=== PATIENT | male | born 1945 | race Caucasian/White ===

== ENCOUNTER 2017-01-29 06:34 | Emergency (ER) | payer BC ==
[2017-01-29 06:42] VITALS: RESP 16
[2017-01-29] MEDS ORDERED: NS 1,000 ML IV ONE ×2 (07:03→08:05)
[2017-01-29] MEDS ORDERED: ACETAMINOPHEN 325 MG TAB PO ONE (07:04)
--- NOTE | 2017-01-29 07:04 | EDPHY ---
H & P Time Seen by Provider: 01/29/17 06:49 HPI/ROS: CHIEF COMPLAINT: Fever and feels hot HISTORY OF PRESENT ILLNESS: This 71-year-old man says that it "started going downhill around lunchtime" yesterday. He had a dental procedure for a left upper tooth where he had a broken implant. He had a replacement screwed into his gum and was hurting yesterday afternoon associated with his head feeling "thick" and a little bit of a sensation of being hot. Overnight his tooth stopped hurting. He felt hot and dry and fever nayak was shaking with 3 blankets over him and felt very clammy. Symptoms were severe. Not associated with cough or urinary symptoms or sore throat or other ENT symptoms. No animals. He did return 2 weeks ago from [place] and was at a conference in a [place] [facility] for a week. Did not take malaria prophylaxis but no known insect exposures. REVIEW OF SYSTEMS: Eye: no change in vision ENT: no sore throat or earache, dental as above Cardiac: no chest pain or syncope Pulmonary: no cough or SOB Abdomen: no vomiting, diarrhea, abdominal pain Musculoskeletal: no back pain Skin: no rash Neuro: Patient denies a severe headache to me but feels like he has "hangover head" Constitutional: HPI : no urinary symptoms A comprehensive 10 point review of systems is otherwise negative aside from elements mentioned in the history of present illness. PAST MEDICAL HISTORY: Includes hypertension, high cholesterol, depression, osteoporosis Social history: , dentist is Fariha Lopez in [place] General Appearance: Alert and conversant, cooperative. Eyes: No scleral icterus. ENT, Mouth: Normal mucous membranes. No trismus. No left upper gum swelling around the implant. Respiratory: Normal respiratory effort, breath sounds equal, lungs are clear to auscultation. Cardiovascular: Regular rate and rhythm. No murmur auscultated. Gastrointestinal: Abdomen is soft and non tender. Spleen not enlarged. Neurological: Alert and oriented x3. Normally conversant. Face symmetric, normal movement and sensation in all extremities. Skin: Warm and dry, no rashes. No petechia or purpura. Musculoskeletal: Normal range of motion of the neck, no meningeal signs. Psychiatric: Not agitated. Emergency Department course/MDM: CBC, Chem 7, urinalysis and chest x-ray. Also would consider Infectious Disease contracted in [place], malaria smear added. Clinically unlikely to have meningitis. 725: Repeat temperature 37.1degrees. 814: Discussed with Balaji from [facility], no ibuprofen, supportive care. 902: Discussed with Yojana will followup including blood cultures. Malaria smear is negative. Low likelihood for endocarditis. Does not have lesions on his hands and no heart murmur. Not currently febrile in our emergency department. More likely to be viral, supportive care indicated. Smoking Status: Never smoked Constitutional: Initial Vital Signs Temperature (C) 37.2 C 01/29/17 06:38 Heart Rate 70 01/29/17 06:38 Respiratory Rate 16 01/29/17 06:38 Blood Pressure 100/72 01/29/17 06:38 O2 Sat (%) 96 01/29/17 06:38 O2 Delivery Mode Room Air Allergies/Adverse Reactions: No Known Allergies Allergy (Verified 01/29/17 06:41) Home Medications: Medication Instructions Recorded amLODIPine BESYLATE 09/01/10 [id number] 02/01/13 Crestor 02/01/13 Fluoxetine 02/01/13 Candesartan-Hctz 32-12.5 mg Tb 07/13/15 Medical Decision Making - Diagnostics Imaging Results: Imaging Impressions Chest X-Ray 01/29/17 07:01 Impression: No acute findings in the chest. Chest x-ray negative for infiltrate or source for fever Imaging: I viewed and interpreted images myself Differential Diagnosis: Differential considered including but not limited to dental infection, endocarditis, pneumonia, UTI, sepsis. - Data Points Laboratory Results: Laboratory Results 01/29/17 07:17 01/29/17 07:17 01/29/17 01/29/17 01/29/17 08:05 07:17 07:17 WBC RBC Hgb Hct MCV MCH MCHC RDW Plt Count MPV Neut % (Auto) Lymph % (Auto) Barron % (Auto) Eos % (Auto) Baso % (Auto) Nucleat RBC Rel Count Absolute Neuts (auto) Absolute Lymphs (auto) Absolute Monos (auto) Absolute Eos (auto) Absolute Basos (auto) Absolute Nucleated RBC Immature Gran % Immature Gran # Sodium 140 mEq/L mEq/L (134-144) Potassium 3.4 mEq/L L mEq/L (3.5-5.2) Chloride 107 mEq/L mEq/L (97-110) Carbon Dioxide 22 mEq/l mEq/l (22-31) Anion Gap 11 mEq/L mEq/L (8-16) BUN 14 mg/dL mg/dL (7-23) Creatinine 0.9 mg/dL mg/dL (0.7-1.3) Estimated GFR > 60 Glucose 107 mg/dL H mg/dL (70-100) Calcium 9.0 mg/dL mg/dL (8.5-10.4) Total Bilirubin 0.9 mg/dL mg/dL (0.1-1.4) Conjugated Bilirubin 0.2 mg/dL mg/dL (0.0-0.5) Unconjugated Bilirubin 0.7 mg/dL mg/dL (0.0-1.1) AST 19 IU/L IU/L (17-59) ALT 31 IU/L IU/L (21-72) Alkaline Phosphatase 38 IU/L IU/L (38-126) Total Protein 6.3 g/dL g/dL (6.3-8.2) Albumin 3.9 g/dL g/dL (3.5-5.0) Urine Color YELLOW Urine Appearance CLEAR Urine pH 7.0 (5.0-7.5) Ur Specific [place] 1.015 (1.002-1.030) Urine Protein NEGATIVE (NEGATIVE) Urine Ketones NEGATIVE (NEGATIVE) Urine Blood NEGATIVE (NEGATIVE) Urine Nitrate NEGATIVE (NEGATIVE) Urine Bilirubin NEGATIVE (NEGATIVE) Urine Urobilinogen 2.0 EU H EU (0.2-1.0) Ur Leukocyte Esterase NEGATIVE (NEGATIVE) Urine Glucose NEGATIVE (NEGATIVE) Malaria Smear NONE SEEN (NONE SEEN) Malaria Sm Path Review Pending 01/29/17 07:17 WBC 9.02 10^3/uL 10^3/uL (3.80-9.50) RBC 3.80 10^6/uL L 10^6/uL (4.40-6.38) Hgb 13.4 g/dL L g/dL (13.7-17.5) Hct 37.2 % L % (40.0-51.0) MCV 97.9 fL fL (81.5-99.8) MCH 35.3 pg H pg (27.9-34.1) MCHC 36.0 g/dL g/dL (32.4-36.7) RDW 13.2 % % (11.5-15.2) Plt Count 152 10^3/uL 10^3/uL (150-400) MPV 10.7 fL fL (8.7-11.7) Neut % (Auto) 82.9 % H % (39.3-74.2) Lymph % (Auto) 8.5 % L % (15.0-45.0) Barron % (Auto) 7.6 % % (4.5-13.0) Eos % (Auto) 0.4 % L % (0.6-7.6) Baso % (Auto) 0.3 % % (0.3-1.7) Nucleat RBC Rel Count 0.0 % % (0.0-0.2) Absolute Neuts (auto) 7.46 10^3/uL H 10^3/uL (1.70-6.50) Absolute Lymphs (auto) 0.77 10^3/uL L 10^3/uL (1.00-3.00) Absolute Monos (auto) 0.69 10^3/uL 10^3/uL (0.30-0.80) Absolute Eos (auto) 0.04 10^3/uL 10^3/uL (0.03-0.40) Absolute Basos (auto) 0.03 10^3/uL 10^3/uL (0.02-0.10) Absolute Nucleated RBC 0.00 10^3/uL 10^3/uL (0-0.01) Immature Gran % 0.3 % % (0.0-1.1) Immature Gran # 0.03 10^3/uL 10^3/uL (0.00-0.10) Sodium Potassium Chloride Carbon Dioxide Anion Gap BUN Creatinine Estimated GFR Glucose Calcium Total Bilirubin Conjugated Bilirubin Unconjugated Bilirubin AST ALT Alkaline Phosphatase Total Protein Albumin Urine Color Urine Appearance Urine pH Ur Specific [place] Urine Protein Urine Ketones Urine Blood Urine Nitrate Urine Bilirubin Urine Urobilinogen Ur Leukocyte Esterase Urine Glucose Malaria Smear Malaria Sm Path Review Medications Given: Discontinued Medications Acetaminophen (Tylenol) 650 mg PO EDNOW ONE Stop: 01/29/17 07:05 Last Admin: 01/29/17 07:18 Dose: 650 mg Sodium Chloride (Ns) 1,000 mls @ 0 mls/hr IV ONCE ONE; Wide Open PRN Reason: Protocol Stop: 01/29/17 07:04 Last Admin: 01/29/17 07:19 Dose: 1,000 mls Sodium Chloride (Ns) 1,000 mls @ 0 mls/hr IV EDNOW ONE; Wide Open PRN Reason: Protocol Stop: 01/29/17 08:06 Last Admin: 01/29/17 08:09 Dose: 1,000 mls Departure - Departure Disposition: Home, Routine, Self-Care Clinical Impression: Fever Qualifiers: Fever type: unspecified Qualified Code(s): R50.9 - Fever, unspecified Condition: Good Instructions: Fever in Adults (ED) Referrals: Sabine Dial MD [Primary Care Provider] - As per Instructions
[2017-01-29 07:26] VITALS: BP 119/79
[2017-01-29 07:46] LABS: ALANINE AMINOTRANSFERASE 31 IU/L (21-72); ALBUMIN 3.9 g/dL (3.5-5.0); ALKALINE PHOSPHATASE 38 IU/L (38-126); ANION GAP 11 mEq/L (8-16); ASPARTATE AMINOTRANSFERASE 19 IU/L (17-59); BILIRUBIN,TOTAL 0.9 mg/dL (0.1-1.4); BILIRUBIN-CONJUGATED 0.2 mg/dL (0.0-0.5); BILIRUBIN-UNCONJUGATED 0.7 mg/dL (0.0-1.1); CARBON DIOXIDE 22 mEq/l (22-31); CHLORIDE 107 mEq/L (97-110); CREATININE 0.9 mg/dL (0.7-1.3); GLOMERULAR FILTRATION RATE > 60; GLUCOSE 107 mg/dL (70-100); POTASSIUM 3.4 mEq/L (3.5-5.2); SODIUM 140 mEq/L (134-144); TOTAL PROTEIN 6.3 g/dL (6.3-8.2)
[2017-01-29 08:09] LABS: % IMMATURE GRANULYOCYTES 0.3 % (0.0-1.1); ABSOLUTE IMMATURE GRANULOCYTES 0.03 10^3/uL (0.00-0.10); ADD DIFF? NO; ADD MORPH? NO; ADD SCAN? NO; ATYPICAL LYMPHOCYTE FLAG 10 (0-99); FRAGMENT RBC FLAG 0 (0-99); HEMATOCRIT 37.2 % (40.0-51.0); HEMOGLOBIN 13.4 g/dL (13.7-17.5); LEFT SHIFT FLG 0 (0-99); LIPEMIA HEMOLYSIS FLAG 90 (0-99); MEAN CELL HEMOGLOBIN 35.3 pg (27.9-34.1); MEAN CELL VOLUME 97.9 fL (81.5-99.8); MEAN PLATELET VOLUME 10.7 fL (8.7-11.7); PLATELET CLUMPS FLAG 0 (0-99); PLATELET COUNT 152 10^3/uL (150-400); RED CELL DISTRIBUTION WIDTH 13.2 % (11.5-15.2)
[2017-01-29 08:19] LABS: COLOR YELLOW; LEUKOCYTE ESTERASE,URINE NEGATIVE (NEGATIVE); NITRITE,URINE NEGATIVE (NEGATIVE)
[2017-01-29 09:24] VITALS: PULSE 66; TEMP 99.7; O2SAT 94
[2017-01-29 10:03] LABS: MALARIAL PREP NONE SEEN (NONE SEEN)
== END 2017-01-29 09:24 | disposition home or self-care (01) ==
DX: R50.9 Fever, unspecified (principal); E86.9 Volume depletion, unspecified

== ENCOUNTER → 2018-01-06 | Outpatient (CLI) | payer BC | LOC: BMCIMAGING 09:34 | PROVIDERS: ATTEND Internal Medicine | DX: M81.0 Age-related osteoporosis without current pathological fracture (principal) ==